=== PATIENT | female | born 1970 | race Caucasian/White ===

== ENCOUNTER 2017-01-29 16:24 | Emergency (ER) | payer BC ==
[2017-01-29] MEDS ORDERED: NORMAL SALINE 1,000 ML IV ONE (16:33)
[2017-01-29] MEDS ORDERED: HYDROmorphone HCL 1 MG/ML DISP.SYRIN IV ONE (16:33)
--- OUTSIDE RECORDS SUMMARY | 2017-01-29 16:36 | XMS REPORT | Continuity of Care Document ---
:1970 Author Organization [facility] ([facility]) Address [address] [place] [address] Phone [phone] Care Team Providers Name Role Phone Unavailable Primary Care Provider Unavailable Source Comments This disclosure is being made pursuant to the Care Everywhere program, applicable federal and state laws, and may not contain all informaitonavailable regarding this patient.[facility] ([facility]) Active Allergies and Adverse Reactions Not on File Current Medications Not on file Active Problems Problem Noted Date Pain in joint, ankle and foot 12/21/2001 Immunizations Name Dates Previously Given Next Due Td, adult unspecified 07/15/1996 Social History Tobacco Use Types Packs/Day Years Used Date Never Assessed Plan of Care Health Maintenance Due Date Last Done Comments Hepatitis B Vaccine (1 of 3 - Primary Series) 1970 Tdap Vaccine 1979 Lipid Disorder Screening 1986 MMR Vaccine 1986 Cervical Cancer Screening 11/20/2001 11/20/1998 Td Vaccine 07/15/2006 07/15/1996 Mammogram 2008 Influenza Vaccine: Seasonal (#1) 04/26/2016 Results from Last 3 Months Not on file
[2017-01-29] MEDS ORDERED: HYDROmorphone HCL 1 MG/ML DISP.SYRIN ONE (16:38)
[2017-01-29 16:51] LABS: Hematocrit 38.6 % (37.0-47.0); Hemoglobin 12.7 gm/dL (12.5-16.0); Mean Corpuscular Hemoglobin 30.6 pg (27-31); Mean Corpuscular Hgb Conc 32.9 g/dl (32-36); Mean Platelet Volume 8.6 fl (6.0-9.5); Neutrophil # 7.2 K/mm3 (1.3-6.0); Neutrophil % 65.3 % (42-75.0); Platelet Count 445 K/mm3 (150-450); Red Blood Count 4.15 M/mm3 (4.2-5.4); Red Cell Distribution Width 12.9 % (11.5-14.0)
[2017-01-29] MEDS ORDERED: MORPHINE SULFATE 2 MG/ML DISP.SYRIN ONE (16:52)
[2017-01-29] MEDS ORDERED: diphenhydrAMINE HCL 50 MG/ML VIAL ONE (16:52)
[2017-01-29] MEDS ORDERED: MORPHINE SULFATE 2 MG/ML DISP.SYRIN IV ONE (16:53)
[2017-01-29] MEDS ORDERED: diphenhydrAMINE HCL 50 MG/ML VIAL IV ONE (16:53)
[2017-01-29 17:03] LABS: Albumin * 3.6 gm/dl (3.4-5.0); Anion Gap 12.8 mmol/L (6.8-13.8); Bilirubin, Total 0.3 mg/dL (0.0-1.1); Ca. Corrected For Albumin 9.2 mg/dL (8.4-10.2); Calcium * 9.2 mg/dL (7.9-10.9); Potassium 3.8 mmol/L (3.4-4.6); Total Protein 7.6 gm/dL (6.2-8.2)
--- NOTE | 2017-01-29 17:39 | ERNOTE ---
Abdominal HPI - Narrative Date of Service: 01/29/17 - General Chief Complaint: Abdominal Pain Time Seen by Provider: 01/29/17 16:29 Source: patient Exam Limitations: no limitations - Immun/Allergies/Home Medications Immunizatons: IMMUNIZATION HX Immunizations Up to Date Yes History of Influenza Vaccine No Hx Pneumococcal Vaccination No Allergies/Adverse Reactions: Allergies corn Allergy (Severe, Verified 01/29/17 16:36) Anaphylaxis peanut Allergy (Severe, Verified 01/29/17 16:36) Anaphylaxis Yeast Allergy (Severe, Verified 01/29/17 16:36) Anaphylaxis iodine Allergy (Unknown, Verified 01/29/17 18:07) Mother told patient 45 years prior that she is allergic to iodine. naproxen Adverse Reaction (Verified 01/29/17 16:36) Home Medications: HOME MEDICATIONS Atenolol [Tenormin] 50 mg PO DAILY 04/03/15 [Last Taken Unknown] Citalopram Hydrobromide [Citalopram HBr] 20 mg PO DAILY 04/03/15 [Last Taken Unknown] diphenhydrAMINE HCL [Benadryl] 50 mg PO Q6H PRN #40 capsule 04/03/15 [Last Taken Unknown] Famotidine [Pepcid] 20 mg PO BID 3 Days 02/20/16 [Last Taken Unknown] diphenhydrAMINE HCL [Benadryl] 25 mg PO Q6H #30 cap 02/20/16 [Last Taken Unknown ] predniSONE [Prednisone] 1 tab PO TID #15 tab 02/20/16 [Last Taken Unknown] Cyclobenzaprine HCl [Flexeril] 10 mg PO TID PRN #30 tab 07/20/16 [Last Taken Unknown] Zanaflex 07/29/16 [Last Taken Unknown] - History of Present Illness Narrative: Patient presents to the ED for severe right sided abdominal pain. She relates this pain started acutely 1 hour ago while she was helping cook. She has never had anything like it before. It comes in waves. Severe at times. Right mid abdomn in to right back. Has not seen anyone else for this. Nothing really makes this better or worse. She denies vomiting. No blood in urine or dysuria. No CP or SOB. Timing: constant Quality: severe Activities at Onset: none Modifying Factors - (Improves): Present: other - nothing Modifying Factors - (Worsens): Present: other - nothing Associated Symptoms: Absent: chest pain, diarrhea-gross blood, fever/chills, vomiting Prior Abdominal Problems: Absent: recent trauma Prior Treatment: Absent: recently seen Review of Systems - Review of Systems Constitutional: Absent: fever Respiratory: Absent: shortness of breath Cardiology: Absent: chest pain Gastrointestinal/Abdominal: Present: See HPI Genitourinary: Absent: dysuria All Other Systems: All systems neg except as marked - Patient's Past Medical History Patient History - Medical: No pertinent hx, Other Patient History - Cardiac/Respiratory: No pertinent hx Patient History - Cancer: No Hx of Cancer Patient History - Surgical Procedures: Other Patient History - Other: None LMP (females 10-50): 1 month - Social History Living Situations: spouse Abuse History: No History of abuse Psych History: No pertinent hx Smoking Status: Former smoker Alcohol Use: none Drug Use: none - Immunizations Immunizations Up to Date: Yes Hx Pneumococcal Vaccination: No History of Influenza Vaccine: No Physical Exam - Physical Exam General Appearance: Present: alert, no apparent distress Eye Exam: Normal inspection: bilateral, PERRL: bilateral Ears, Nose, Throat: Present: normal ENT inspection Neck: Present: normal inspection Respiratory: Present: no respiratory distress, normal breath sounds, no accessory muscle use, lungs clear Cardiovascular/Chest: Present: regular rate, rhythm, normal peripheral pulses Gastrointestinal/Abdominal: Present: normal bowel sounds, soft, no organomegaly , other - Right mid abdominal tendenress. No guarding or rebound. No peritoneal signs Back Exam: Present: CVA tenderness (R) Extremity Exam: Present: normal inspection Neurological Exam: Present: alert, normal mood/affect, no motor/sensory deficits Skin Exam: Present: normal color, warm/dry. Absent: skin rash ED Progress - Results and Orders Patient's Lab Results:: I have reviewed the patient's lab results. - Vital Signs Patient's Vital Signs:: I have reviewed the patient's vital signs. Vital Signs: Vital Signs 01/29/17 16:31 Temperature 37.0 C Pulse Rate 96 Respiratory 16 Rate Blood Pressure 178/87 O2 Sat by Pulse 99 Oximetry - Progress/Reassessment Chief Complaint: Abdominal Pain - Transfer of Care Physician Sign Out: Alexsander Saini Receiving Physician: Dafne Ibrahim Pending Results: CT/MRI results Departure - Departure Clinical Impression: Abdominal pain Condition: Stable Referrals: Clau Ariza MD [Primary Care Provider] -
[2017-01-29 17:58] LABS: Urine Appearance Clear; Urine Bacteria None Seen; Urine Bilirubin Negative (NEGATIVE); Urine Blood Negative /ul (NEGATIVE); Urine Color Yellow; Urine Ketone Negative (NEGATIVE); Urine Nitrite Negative (NEGATIVE); Urine Protein Negative (NEGATIVE); Urine RBC None Seen /hpf (0-5); Urine Specific Gravity 1.005 SP.GR. (1.005-1.010); Urine Urobilinogen Normal (NORMAL); Urine WBC None Seen /hpf (0-5)
[2017-01-29] MEDS ORDERED: DIATRIZOATE MEGLU/DIATRIZO SOD 30 ML BTL PO ONE (18:00)
[2017-01-29] MEDS ORDERED: DIATRIZOATE MEGLU/DIATRIZO SOD 30 ML BTL ONE (18:00)
[2017-01-29] MEDS ORDERED: KETOROLAC TROMETHAMINE 30 MG/ML VIAL IV ONE (21:06)
[2017-01-29] MEDS ORDERED: KETOROLAC TROMETHAMINE 30 MG/ML VIAL ONE (21:11)
[2017-01-29] MEDS ORDERED: HYDROcodone/ACETAMINOPHEN 1 EACH TABLET ONE (22:43)
[2017-01-29] MEDS ORDERED: HYDROcodone/ACETAMINOPHEN 1 EACH TABLET PO ONE (22:44)
[2017-01-29 23:20] VITALS: BP 133/86
== END 2017-01-29 22:30 | disposition home or self-care (01) ==
LOC: ER 16:24
DX: R10.9 Unspecified abdominal pain (principal); Z87.891 Personal history of nicotine dependence

== ENCOUNTER 2017-02-11 09:53 | Day surgery (SDC) | payer BC ==
[~2017-02-11 09:53] MED LIST: RINGERS SOLUTION,LACTATED 1,000 ML IV PRN
--- OUTSIDE RECORDS SUMMARY | 2017-02-11 10:32 | XMS REPORT | Continuity of Care Document ---
:1970 Author Organization [facility] ([facility]) Address [address] [place] [address] Phone [phone] Care Team Providers Name Role Phone Unavailable Primary Care Provider Unavailable Source Comments This disclosure is being made pursuant to the Care Everywhere program, applicable federal and state laws, and may not contain all informaitonavailable regarding this patient.[facility] ([facility]) Active Allergies and Adverse Reactions Not [...]
[2017-02-11] MEDS ORDERED: BUPIVACAINE HCL/EPINEPHRINE 50 ML VIAL IJ ONE ×2 (11:17)
--- NOTE | 2017-02-11 12:29 | OR ---
Operative Report - Dictated Report Narrative: Date: 02/11/2017 PREOP: Symptomatic gallstones POSTOP: same Procedure: Lap penelope Surgeon: Ricardo Brantley MD Anesth: GETA EBL: Minimal Comps: none apparent Description: Pt placed in supine position and following the smooth induction of GETA the abdomen was prepped and draped in a sterile fashion with chloraprep. All ports sites anesthetized with marcaine prior to incision. Abdomen entered under direct vision through a 5mm infraumbilical incision and a 5mm blunt port with a scope in the lumen of the trocar. Abdomen insufflated to 15mmHg with CO2. Superior midline 12mm and two right flank 5mm ports inserted. Fundus grasped and elevated toward diaphragm. GB completely impacted with large stones. Infundibulum grasped for counter-traction. Cystic duct and artery isolated doubly clipped and divided individually after critical view of safety obtained. GB taken out of fossa and placed in endocatch pouch and delivered through superior midline port. Required opening the fascia and skin a little bigger for egress. 12mm port returned and pneumoperitoneum re-established. Hemastasis found to be adequate and no bile leak apparent. Pneumoperitoneum evacuated and ports removed. Fascia closed with interrupted heavy vicryl suture. Incisions closed with subcuticular 4-0 vicryl and sealed with dermabond. Pt tolerated procedure well without any apparent complications and was discharged from the OR in stable condition.
[2017-02-11] MEDS ORDERED: MORPHINE SULFATE 4 MG/ML SYRG IV PRN (13:22)
[2017-02-11] MEDS ORDERED: HYDROcodone/ACETAMINOPHEN 1 EACH TABLET PO PRN (13:24)
[2017-02-11] MEDS ORDERED: ONDANSETRON HCL/PF 2 MG/ML VIAL IV PRN (13:25)
[2017-02-11 15:21] VITALS: BP 111/68
== END 2017-02-11 09:54 | disposition home or self-care (01) ==
LOC: AMB 09:53
PROVIDERS: ATTEND Specialist
PROC: 0FT44ZZ Resection of Gallbladder, Percutaneous Endoscopic Approach (ICD-10-PCS; principal; 2017-02-11 11:45)
DX: K80.12 Calculus of gallbladder with acute and chronic cholecystitis without obstruction (principal); I10 Essential (primary) hypertension; E16.2 Hypoglycemia, unspecified; D64.9 Anemia, unspecified; F32.9 Major depressive disorder, single episode, unspecified; Z87.891 Personal history of nicotine dependence; Z68.41 Body mass index [BMI] 40.0-44.9, adult